=== PATIENT | male | born 1980 ===

== ENCOUNTER 2017-05-10 17:51 | Emergency (ER) | payer BC ==
[2017-05-10 18:03] VITALS: BP 117/75
[2017-05-10] MEDS ORDERED: Tetan/Diph/Pertus SYR(Tdap)* 0.5 ML SYR(BOOSTRIX) use SYR IM ONE (18:28)
[2017-05-10] MEDS ORDERED: Rabies Immune Globulin 2 ML* 150 UNITS/ML VIAL IM ONE (18:29)
[2017-05-10] MEDS ORDERED: Rabies Immune Globulin 10 ML* 150 UNIT/ML VIAL IM ONE (18:29)
[2017-05-10] MEDS ORDERED: Rabies VIRUS VACCINE, HDCV* 2.5 UNIT/ML 1 ML IM ONE (18:31)
[2017-05-10] MEDS ORDERED: Rabies Vaccine, PCEC INJ* 1 ml IM ONE (18:45)
--- NOTE | 2017-05-10 19:24 | UC ---
UC General HPI - HPI Summary HPI Summary: BAT DISCOVERED IN DOMESTIC SPACES OF HOUSE. NO KNOWN BITES. HEALTH DEPT NOTIFIED , [facility] REQUESTED RABIES VACCINE AND IMMUNEOGLOBIN ADMINISTRATION DUE TO RABIES RISK. - History of Current Complaint Chief Complaint: UCBiteInjury Stated Complaint: RABIES VACC Time Seen by Provider: 05/10/17 17:53 Hx Obtained From: Patient, Family/Shield Cleaner Current Severity: None Associated Signs & Symptoms: Negative: Cough, Chest Pain, Decreased Responsiveness, Dizziness, Diarrhea, Dysuria, Fever, Headache, Nausea, SOB, Vomiting - Allergy/Home Medications Allergies/Adverse Reactions: Allergies Allergy/AdvReac Type Severity Reaction Status Date / Time No Known Allergies Allergy Verified 05/10/17 18:02 Home Medications: Home Medications NK [No Home Medications Reported] 05/10/17 [History Confirmed 05/10/17] PMH/Surg Hx/FS Hx/Imm Hx Previously Healthy: Yes - Surgical History Surgical History: Yes Surgery Procedure, Year, and Place: TONSILS - Family History Known Family History: Negative: Blood Disorder - Social History Occupation: Employed Full-time Lives: With Family Alcohol Use: Weekly Substance Use Type: None Smoking Status (MU): Former Smoker Review of Systems Constitutional: Negative Skin: Negative Eyes: Negative ENT: Negative Respiratory: Negative Cardiovascular: Negative Gastrointestinal: Negative Genitourinary: Negative Motor: Negative Neurovascular: Negative Musculoskeletal: Negative Neurological: Negative Psychological: Negative All Other Systems Reviewed And Are Negative: Yes Physical Exam Triage Information Reviewed: Yes Appearance: Well-Appearing, No Pain Distress, Well-Nourished Vital Signs: Initial Vital Signs Temp 97.1 F 05/10/17 18:00 Pulse 59 05/10/17 18:00 Resp 16 05/10/17 18:00 BP 117/75 05/10/17 18:00 Pulse Ox 99 05/10/17 18:00 Vital Signs Reviewed: Yes Eye Exam: Normal ENT Exam: Normal Dental Exam: Normal Neck exam: Normal Neck: Positive: Supple, Nontender, No Lymphadenopathy Respiratory Exam: Normal Respiratory: Positive: Chest non-tender, Lungs clear, Normal breath sounds, No respiratory distress, No accessory muscle use Cardiovascular Exam: Normal Cardiovascular: Positive: RRR, No Murmur, Pulses Normal, Brisk Capillary Refill Abdominal Exam: Normal Musculoskeletal Exam: Normal Neurological Exam: Normal Psychological Exam: Normal Skin Exam: Normal Course/Dx - Differential Dx - Multi-Symptom Differential Diagnoses: Metabolic Abnormality Provider Diagnoses: RABIES PROPHYLAXIS Discharge - Discharge Plan Condition: Stable Disposition: HOME Patient Education Materials: Rabies Vaccine (ED), Rabies Immune Globulin (By injection) Referrals: No Primary Care Phys,NOPCP [Primary Care Provider] - [facility] [Outside]
== END 2017-05-10 21:40 | disposition home or self-care (01) ==
LOC: UCEAST 17:51
DX: Z20.3 Contact with and (suspected) exposure to rabies (principal); Z23 Encounter for immunization
CPT/HCPCS: 90375; 90471; 90472; 90675; 90715; 96372; 99212; G0463

== ENCOUNTER 2017-12-30 07:22 | Day surgery (SDC) | payer BC ==
--- NOTE | 2017-12-21 16:44 | HP ---
HISTORY AND PHYSICAL: DATE OF ADMISSION: 12/30/[address] [facility] ATTENDING PROVIDER: Dr. England * (DICTATED BY ELVIE CLAROS) HISTORY OF PRESENT ILLNESS: Mr. Bell is a 37-year-old male who has seen Dr. England for numbness and tingling of the bilateral arms. He states that it is worse on the left than the right. He states that it has gradually gotten worse over time. Initially, the symptoms were started after a physical therapy of his elbow. He has had injections into his elbow, into his carpal tunnels, but have not given him sustained relief. An EMG nerve conduction study was obtained and showed right ulnar neuropathy at the wrist affecting sensorimotor components without denervation, otherwise normal. The patient would like to proceed with a left wrist carpal tunnel release and ulnar nerve decompression given his symptomatology. PAST MEDICAL HISTORY: None. PAST SURGICAL HISTORY: 1. Vasectomy in summer of 2016. 2. Tonsils removed in 2000. 3. [place] teeth removed. No known anesthesia problems. MEDICATIONS: Oxycodone for pain. ALLERGIES: No known drug allergies. SOCIAL HISTORY: The patient denies any drug use. The patient denies any smoking. REVIEW OF SYSTEMS: General: The patient denies fevers, chills, or night sweats. HEENT: The patient denies any headaches, lightheadedness, or syncopal episodes. Cardiothoracic: The patient denies any chest pain, heart palpitations , or edema. Pulmonary: The patient denies any shortness of breath with exertion , chronic cough, or COPD. GI: The patient denies any nausea, vomiting, diarrhea, or constipation. : The patient denies any nocturia, urinary frequency, or urinary urgency. MSK: The patient denies any chronic or intermittent back pain or fractures. Neuro: The patient denies any paresthesias, numbness. Integument: The patient denies any abrasions, lesions, rashes, lumps, or open sores. PHYSICAL EXAMINATION GENERAL: The patient is alert and oriented x3 with appropriate mood and affect , appropriate dress and hygiene. HEENT: Normocephalic, atraumatic. Hearing and vision grossly intact. PULMONARY: Lungs are clear to auscultation bilaterally. No wheezes, rales, or rhonchi. CARDIO: Regular rate and rhythm. Normal S1 and S2. No murmurs, rubs, or gallops. MSK: Bilateral hands on exam, positive Phalen's test, which causes tingling and numbness in both hands. He has a positive median and ulnar nerve compression test to both wrists. There is no thenar wasting. Strength is 5/5. He is neurovascularly intact. 2+ radial pulse bilaterally. 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 PLAN: The patient will undergo a left wrist carpal tunnel release and ulnar nerve decompression on 12/30/17. He will follow up in 10 to 14 days postop for followup and suture removal. ELVIE CLAROS [id number]/[facility] #: [id number] MTDD
[~2017-12-30 07:22] MED LIST: Buffered Lidocaine 0.9% SYRIN* 5 ML/SYR SYRINGE INTRADERM ONE
[2017-12-30] MEDS ORDERED: Buffered Lidocaine 0.9% SYRIN* 5 ML/SYR SYRINGE ONE (07:53)
[2017-12-30] MEDS ORDERED: Lidocaine 1% INJ* 10 MG/ML 30 ML SDV ONE (08:25)
[2017-12-30] MEDS ORDERED: fentaNYL* 50 MCG/ML 2 ML VIAL (100 MCG VIAL) ONE (08:32)
[2017-12-30] MEDS ORDERED: Propofol* 10 MG/ML 20 ML BTL IV PUSH ONE (08:33)
[2017-12-30] MEDS ORDERED: Midazolam* 1 MG/ML 2 ML VIAL (2 MG) ONE (08:33)
[2017-12-30] MEDS ORDERED: Naloxone* 0.4 MG/ML 1 ML VIAL IV PRN (08:58)
[2017-12-30 09:39] VITALS: BP 135/89
--- NOTE | 2017-12-31 00:31 | OP ---
DATE OF OPERATION: 12/30/17 - [facility] DATE OF : 78 SURGEON: Nimisha England MD [employer] BLASTING: ELVIE Howard ANESTHESIOLOGIST: Bora Camarena MD ANESTHESIA: Local MAC. PRE-OP DIAGNOSES: Left carpal tunnel syndrome and ulnar nerve compression of the left wrist. POST-OP DIAGNOSES: Left carpal tunnel syndrome and ulnar nerve compression of the left wrist. OPERATIVE PROCEDURE: Ulnar nerve decompression and median nerve decompression of the left wrist. ESTIMATED BLOOD LOSS: Zero. TOURNIQUET TIME: About 20 minutes. INDICATIONS FOR PROCEDURE: Elvis is a 37-year-old male with numbness and tingling in all of the fingers of his left hand. His nerve conduction study shows ulnar nerve compression of the left wrist and median nerve compression of the left wrist. He presents for ulnar and median nerve decompression of the left wrist. DESCRIPTION OF PROCEDURE: The patient was brought to the operating room, was given a sedation anesthetic and a local infiltration of 10 cc of 1% plain lidocaine. Additional 10 cc was used during the procedure. Skin of his left hand and forearm was prepped and draped in the usual sterile fashion. The hand and forearm were exsanguinated and the tourniquet elevated to 250 mmHg. A longitudinal incision was made in the palm and a zig-zag incision across the wrist creases. We dissected sharply through the subcutaneous tissue and the palm down to the transverse carpal ligament. The ligament was divided sharply with a knife and then more proximally with the scissors. The median nerve was completely dissected free from the surrounding tissue and there was an area of moderate compression at the mid portion of the ligament. The ulnar nerve was then located proximally proximal to the wrist and carefully dissected out through Guyon's canal and completely decompressed through that canal into the center of the palm. The wound was copiously irrigated with saline. The skin edges were reapproximated with 4-0 nylon suture. The wound was dressed with Xeroform, 4x4, Webril and Tigre wrap. The patient tolerated the procedure well, was brought to the recovery room in good condition. [id number]/[facility] #: [id number] MTDD
== END 2017-12-30 10:25 | disposition home or self-care (01) ==
LOC: OREAST 07:22
PROVIDERS: ATTEND Orthopaedic Surgery
DX: G56.02 Carpal tunnel syndrome, left upper limb (principal); G56.22 Lesion of ulnar nerve, left upper limb; Z87.891 Personal history of nicotine dependence; M19.90 Unspecified osteoarthritis, unspecified site
CPT/HCPCS: J2250; J2704; J3010

== ENCOUNTER 2020-01-14 07:38 | Emergency (ER) | payer SELFPAY ==
--- NOTE | 2020-01-14 08:46 | ED ---
Laceration/Wound HPI - HPI Summary HPI Summary: Patient is a 39-year-old male who presents emergency department for laceration to second digital left hand that occurred around 2100 yesterday. Patient states he was using a knife to open a plastic bag when it slipped and cut finger. Tetanus immunization within 5 years per patient. No past medical history. Patient dressed wound last night but wound started bleeding again today when patient dressing off. Symptoms are mild in severity. No current modifying factors. - History of Current Complaint Stated Complaint: FINGER LAC PER PT Time Seen by Provider: 01/14/20 08:20 Hx Obtained From: Patient Pain Intensity: 2 - Allergy/Home Medications Allergies/Adverse Reactions: Allergies Allergy/AdvReac Type Severity Reaction Status Date / Time cat dander Allergy Congestion Verified 01/14/20 07:39 Home Medications: Home Medications oxyCODONE/Acetamin 5/325 MG* 1 tab PO BID PRN 12/23/17 [History Confirmed ] PMH/Surg Hx/FS Hx/Imm Hx Previously Healthy: Yes Endocrine/Hematology History: Denies: Hx Diabetes Cardiovascular History: Denies: Hx Hypertension, Hx Pacemaker/ICD, Other Cardiovascular Problems/ Disorders Respiratory History: Reports: Hx Asthma - as a child Denies: Other Respiratory Problems/Disorders GI History: Reports: Hx Gastroesophageal Reflux Disease - history of, used to take omeprazole, not recent Denies: Other GI Disorders History: Denies: Hx Renal Disease, Other Problems/Disorders Musculoskeletal History: Reports: Hx Arthritis - left shoulder, Other Musculoskeletal History - Bilateral carpal tunnel, elbow and shoulder pain Denies: Hx Rheumatoid Arthritis, Hx Osteoporosis, Hx Tendonitis Sensory History: Reports: Hx Contacts or Glasses - Contacts and glasses, instructed to bring glasses the day of surgery. Denies: Hx Hearing Aid Opthamlomology History: Reports: Hx Contacts or Glasses - Contacts and glasses, instructed to bring glasses the day of surgery. Neurological History: Denies: Other Neuro Impairments/Disorders Psychiatric History: Denies: Hx Panic Disorder - Surgical History Surgery Procedure, Year, and Place: TONSILLECTOMY. Vasectomy 2017. [place] Teeth Extraction. CARPAL TUNNEL LEFT WRIST 12/2017 Hx Anesthesia Reactions: No Infectious Disease History: No Infectious Disease History: Denies: Traveled Outside the [place] in Last 30 Days - Family History Known Family History: Positive: Non-Contributory Negative: Blood Disorder - Social History Occupation: Employed Full-time Lives: With Family Alcohol Use: Weekly Alcohol Amount: A couple of times a week Substance Use Type: Reports: None Smoking Status (MU): Former Smoker Review of Systems Positive: Other - finger laceration left 2nd finger Neurological/Mental Status: Negative Negative: Weakness, Paresthesia, Numbness All Other Systems Reviewed And Are Negative: Yes Physical Exam Triage Information Reviewed: Yes Vital Signs On Initial Exam: Initial Vitals Temp Pulse Resp BP Pulse Ox 97.8 F 59 16 162/114 100 01/14/20 07:39 01/14/20 07:39 01/14/20 07:39 01/14/20 07:39 01/14/20 07:39 Vital Signs Reviewed: Yes Appearance: Positive: Well-Appearing - Pt. sitting on bed in NAD. Skin: Positive: Warm, Dry Head/Face: Positive: Normal Head/Face Inspection Eyes: Positive: Normal, EOMI Neck: Positive: Supple Musculoskeletal: Positive: Other - 1.5cm linear, horizontal superficial laceration noted along palmar aspect of mid 2nd digit of left hand. Full ROM of digit. No bony tenderness. Neurological: Positive: Normal, CN Intact II-III Psychiatric: Positive: Affect/Mood Appropriate Procedures - Procedure Summary Procedure Summary: Wound care left 2nd digit: Wound cleaned with betadine and saline. 4 steri strips placed with good approximation. Pressure dressing placed. Hemostasis obtained. - Sedation Patient Received Moderate/Deep Sedation with Procedure: No Diagnostics - Vital Signs Vital Signs Temp Pulse Resp BP Pulse Ox 01/14/20 07:39 97.8 F 59 16 162/114 100 - Laboratory Lab Statement: Any lab studies that have been ordered have been reviewed, and results considered in the medical decision making process. Laceration Repair Course/Dx - Course Course Of Treatment: Patient with superficial laceration that occurred 12 hours ago. Mild active bleeding. Wound care as noted above. Advised patient to keep wound clean and dry. We'll return to the ER for redness, swelling or drainage from wound. Patient understands and agrees with plan. - Differential Dx Differental Diagnoses: Avulsion, Laceration, Tendon Laceration - Clinical Impression Provider Diagnoses: Finger laceration Discharge ED - Sign-Out/Discharge Documenting (check all that apply): Patient Departure - Discharge Plan Condition: Good Disposition: HOME Patient Education Materials: Laceration (ED), Steristrips (ED) Referrals: Diaz Figueroa MD [Primary Care Provider] - Additional Instructions: Keep dressing in place until tomorrow Keep wound clean and dry Avoid excessive bending of finger Return to ER for redness, swelling, drainage or if concerned - Billing Disposition and Condition Condition: GOOD Disposition: Home - Attestation Statements Provider Attestation: I was available for consult. This patient was seen by the MOS[facility]. The patient was not presented to, seen by, or examined by me. -Dalia
[2020-01-14 09:03] VITALS: BP 152/98
== END 2020-01-14 09:02 | disposition home or self-care (01) ==
LOC: ED 07:38
DX: S61.211A Laceration without foreign body of left index finger without damage to nail, initial encounter (principal); W26.0XXA Contact with knife, initial encounter; Y92.9 Unspecified place or not applicable; K21.9 Gastro-esophageal reflux disease without esophagitis; Z87.891 Personal history of nicotine dependence
CPT/HCPCS: 99281